=== PATIENT | male | born 1985 | race Caucasian/White ===

== ENCOUNTER 2018-02-12 12:18 | Emergency (ER) | payer OTHER ==
[2018-02-12 12:47] VITALS: BP 160/94
--- NOTE | 2018-02-12 13:14 | UC ---
Upper Extremity HPI - HPI Summary HPI Summary: 32 year old male presents with 3-4 week history of progressively worsening left elbow pain and weakness to left hand. Describes pain as "sharp". Radiates down left forearm. Worsens with movement. 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 States he did have a fall approximately 4 weeks ago where he landed on his left side but denies specific injury to elbow. Denies numbness or tingling. Right hand dominant. - History of Current Complaint Chief Complaint: UCUpperExtremity Stated Complaint: LEFT ARM COMPLAINT Time Seen by Provider: 02/12/18 12:41 Hx Obtained From: Patient Pain Intensity: 8 - Allergies/Home Medications Allergies/Adverse Reactions: Allergies Allergy/AdvReac Type Severity Reaction Status Date / Time erythromycin base Allergy Vomiting Verified 02/12/18 12:41 Home Medications: Home Medications Acetaminophen [Acetaminophen Extra Strength] 1,500 mg PO TID PRN 02/12/18 [ History Confirmed 02/12/18] Ibuprofen TAB* [Advil TAB*] 600 mg PO TID PRN 02/12/18 [History Confirmed ] PMH/Surg Hx/FS Hx/Imm Hx Previously Healthy: Yes - Denies significant PMH - Surgical History Surgical History: None - Family History Known Family History: Positive: Non-Contributory - Social History 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 Negative: Decreased ROM Is Patient Immunocompromised?: No Physical Exam - Summary Physical Exam Summary: GENERAL APPEARANCE: Well developed, well nourished, alert and cooperative, and appears to be in no acute distress. NECK: Neck supple, non-tender. CARDIAC: Normal S1 and S2. No S3, S4 or murmurs. Rhythm is regular. There is no peripheral edema, cyanosis or pallor. Extremities are warm and well perfused. Capillary refill is less than 2 seconds. LUNGS: Clear to auscultation and percussion without rales, rhonchi, wheezing or diminished breath sounds. ABDOMEN: Positive bowel sounds. Soft, nondistended, nontender. No guarding or rebound. No masses or hepatosplenomegally. MUSKULOSKELETAL: ROM intact to left elbow. Mild tenderness to the medial and lateral aspects of the left elbow. Diminished left population geneticist strength compared to right. No atrophy noted. EXTREMITIES: No significant deformity or joint abnormality. Peripheral pulses intact. NEUROLOGICAL: Strength and sensation symmetric and intact. SKIN: Skin normal color, texture and turgor with no lesions or eruptions. Triage Information Reviewed: Yes Vital Signs: Initial Vital Signs Temp 98.7 F 02/12/18 12:43 Pulse 87 02/12/18 12:43 Resp 16 02/12/18 12:43 BP 160/94 02/12/18 12:43 Pulse Ox 99 02/12/18 12:43 Vital Signs Reviewed: Yes Diagnostics - Radiology No standard instances Radiology Interpretation Completed By: Radiologist Summary of Radiographic Findings: Patient Name: LIZETTE CONNORS Medical Record#: [id number]. Ordering Physician: Colten Eastman NP Acct.#: [id number]. : 1985 Age: 32 Sex: M Location: [facility]. Exam Date: 1241 ADM Status: REG ER. Order Information: ELBOW LEFT 3+VWS. Accession Number: [id number]. CPT: 59007. HISTORY: pain. COMPARISONS: None. VIEWS: 4 , Frontal, lateral, and oblique views of the left elbow. FINDINGS: BONE DENSITY: Normal. BONES: There is no displaced fracture. JOINTS: There is no arthropathy. ALIGNMENT: There is no dislocation. SOFT TISSUES: Unremarkable. OTHER FINDINGS: None. IMPRESSION: NO ACUTE OSSEOUS INJURY. IF SYMPTOMS PERSIST , RECOMMEND REPEAT IMAGING. Upper Extremity Course/Dx - Course Course Of Treatment: 32 year old male presents with 3-4 week history of progressively worsening left elbow pain and weakness to left hand. Describes pain as "sharp". Radiates down left forearm. Worsens with movement. 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 States he did have a fall approximately 4 weeks ago where he landed on his left side but denies specific injury to elbow. Denies numbness or tingling. Right hand dominant. Exam revealed some mild tenderness to the medial and lateral aspects of the left elbow, full ROM, diminished left population geneticist strength with sensation intact. X-ray negative for fracture. Suspect that his symptoms represent a neuropathy. Will start him on naproxen 500 mg BID and provide him with referral to PT for evaluation. He is to follow up with his PCP in 1 week for re-evaluation of symptoms and to discuss further testing. Warning symptoms were discussed with patient. Verbalizes understanding and agrees with POC. - Differential Dx/Diagnosis Differential Diagnosis/HQI/PQRI: Bursitis, Fracture (Closed), Strain, Sprain Provider Diagnosis: Left arm pain Discharge - Sign-Out/Discharge Documenting (check all that apply): Patient Departure All imaging exams completed and their final reports reviewed: Yes - Discharge Plan Condition: Stable Disposition: HOME Prescriptions: Naproxen [Naproxen 500 mg tab] 500 mg PO Q12HR #30 tablet Patient Education Materials: Peripheral Neuropathy (ED) Referrals: Martha Pembertno MD [Primary Care Provider] - 7 Days Additional Instructions: The x-ray performed in the clinic today was normal. I suspect that your pain may be nerve pain. We will start with some conservative treatments for now but you may need some additional testing for a definitive diagnosis. Take naproxen 1 tab every 12 hours with food. I have given you a prescription for physical therapy as this is often beneficial for these symptoms. I would recommend that you call and schedule an appointment. Follow up with your primary care provider in 7 days for recheck of symptoms. Seek immediate medical attention in the emergency room if you have chest pain, shortness of breath, weakness, dizziness, or any worsening of symptoms. - Billing Disposition and Condition Condition: STABLE Disposition: Home
== END 2018-02-12 13:25 | disposition home or self-care (01) ==
LOC: UCCORT 12:18
DX: M25.522 Pain in left elbow (principal); Z88.1 Allergy status to other antibiotic agents
CPT/HCPCS: 99212; G0463